=== PATIENT | male | born 1970 | race Caucasian/White ===

== ENCOUNTER 2016-08-09 14:58 | Emergency (ER) | payer OTHER ==
--- OUTSIDE RECORDS SUMMARY | 2016-08-09 15:28 | XMS REPORT | Continuity of Care Document ---
:1970 Author Organization [facility] ([facility]) Address [place] [address] Phone [phone] Care Team Providers Name Role Phone Unavailable Primary Care Provider Unavailable Source Comments This disclosure is being made pursuant to the Care Everywhere program, applicable federal and state laws, and may not contain all informaitonavailable regarding this patient.[facility] ([facility]) Active Allergies and Adverse Reactions Not on File Current Medications Not on file Active Problems Not on file Social History Tobacco Use Types Packs/Day Years Used Date Never Assessed Plan of Care Health Maintenance Due Date Last Done Comments Hepatitis B Vaccine (1 of 3 - Primary Series) 1970 Tdap Vaccine 10/13/1982 Lipid Disorder Screening 10/13/1989 MMR Vaccine 10/13/1989 Td Vaccine 10/13/1989 Influenza Vaccine: Seasonal (#1) 01/03/2016 Results from Last 3 Months Not on file
--- NOTE | 2016-08-09 16:16 | ERNOTE ---
Medical Problem HPI - Narrative Date of Service: 08/09/16 - General Chief Complaint: Laceration Time Seen by Provider: 08/09/16 15:18 Source: patient Exam Limitations: no limitations - Immun/Allergies/Home Medications Immunizations: IMMUNIZATION HX History of Influenza Vaccine No Hx Pneumococcal Vaccination No Allergies/Adverse Reactions: Allergies Penicillins Adverse Reaction (Intermediate, Verified 08/09/16 15:16) Hives Home Medications: HOME MEDICATIONS Doxycycline Monohydrate 100 mg PO BID #10 tablet 08/09/16 [Last Taken Unknown] - History of Present History Narrative: Was at work and got his little finger caught in between a piece of steel causing a crush type injury with a burst laceration of the distal phalanx of the left little finger. Timing: constant Severity: moderate Review of Systems - Review of Systems Constitutional: Present: See HPI EYE: Present: no symptoms reported ENT: Present: no symptoms reported Respiratory: Present: no symptoms reported Cardiology: Present: no symptoms reported Gastrointestinal/Abdominal: Present: no symptoms reported Genitourinary: Present: no symptoms reported Musculoskeletal: Present: See HPI Skin: Present: no symptoms reported Neurological: Present: no symptoms reported Endocrine: Present: no symptoms reported Hematologic/Lymphatic: Present: no symptoms reported Psych: Present: no symptoms reported - Patient's Past Medical History Patient History - Medical: No pertinent hx Patient History - Cardiac/Respiratory: No pertinent hx Patient History - Cancer: No Hx of Cancer Patient History - Surgical Procedures: Other Patient History - Other: None - Social History Living Situations: home Abuse History: No History of abuse Psych History: No pertinent hx Alcohol Use: none - Immunizations Hx Pneumococcal Vaccination: No History of Influenza Vaccine: No Physical Exam - Physical Exam General Appearance: Present: wd/wn, alert, moderate distress Eye Exam: Normal inspection: bilateral, PERRL: bilateral Ears, Nose, Throat: Present: normal ENT inspection, H, normal pharynx Neck: Present: normal inspection, nontender Respiratory: Present: no respiratory distress, normal breath sounds, no accessory muscle use, chest nontender, lungs clear Cardiovascular/Chest: Present: regular rate, rhythm, no murmur, normal peripheral pulses Gastrointestinal/Abdominal: Present: normal bowel sounds, nontender, nondistended, soft, no organomegaly Rectal Exam: Present: deferred Back Exam: Present: normal inspection, normal range of motion Extremity Exam: Present: normal range of motion, other - patient has a burst type laceration of the distal phalanx of the left long finger however has reasonable range of motion and neurovascular is intact. Neurological Exam: Present: alert, oriented, normal mood/affect Skin Exam: Present: normal color, warm/dry Lymphatic Exam: Present: no adenopathy ED Progress - Vital Signs Patient's Vital Signs:: I have reviewed the patient's vital signs. Vital Signs: Vital Signs 08/09/16 15:10 Temperature 37.1 C Pulse Rate 76 Respiratory 12 Rate Blood Pressure 153/94 O2 Sat by Pulse 96 Oximetry - X-Ray X-Ray #1 X-Ray: finger Interpretation: Reviewed by me - Progress/Reassessment Chief Complaint: Laceration Progress:: Improved - Transfer of Care Expected Disposition: Discharge Procedures Left Finger 5th Digit Anesthesia: 1% Lidocaine, Digital Block I & D Prep: betadine prep Length of Repair/Wound (cm): 2 Wound's Depth/Shape: into subcutaneous Wound Explored: contaminated moderately Wound Intervention: irrigated w/saline, debrided minimal Foreign body identified: metal Distal NVT: neuro/vasc intact, no tendon injury Wound Repaired With: sutures Suture Size/Type: 3-0, nylon Number of Sutures: 3 Layer Closure: Simple Wound Dressing: sterile dressing applied Complications: Pt diego procedure well Plan - Plan Plan: Pt's Adacel was up to date. He will be started on Doxycycline for 5 days since this is an open fracture. Sutures out in 10 days[address] Finger guard in place and he will use it to tolerance and need. Departure - Departure Clinical Impression: Laceration Disposition: Home self-care Condition: Good Instructions: Laceration Care, Adult, [id number] Referrals: Denton Nobles MD [Primary Care Provider] - Prescriptions: Doxycycline Monohydrate 100 mg PO BID #10 tablet
[2016-08-09 20:23] VITALS: BP 162/92
== END 2016-08-09 16:56 | disposition home or self-care (01) ==
LOC: ER 14:58
PROC: 0JQK0ZZ Repair Left Hand Subcutaneous Tissue and Fascia, Open Approach (ICD-10-PCS; principal; 2016-08-09)
DX: S62.667B Nondisplaced fracture of distal phalanx of left little finger, initial encounter for open fracture (principal); W23.0XXA Caught, crushed, jammed, or pinched between moving objects, initial encounter; Y92.89 Other specified places as the place of occurrence of the external cause; Y99.0 Civilian activity done for income or pay